=== PATIENT | female | born 1995 | race Two or more races ===

== ENCOUNTER 2018-09-29 15:55 | Emergency (ER) | payer OTHER ==
[~2018-09-29] VITALS: Ht 157.5 cm; Wt 62.6 kg
[2018-09-29] MEDS ORDERED: Acetaminophen 500mg (ES) tab ORAL ONE (16:45)
[2018-09-29 17:24] VITALS: BP 105/62
--- NOTE | 2018-09-29 17:26 | NUR ---
ED Nurse Note:pt. received pain meds and went to MRI
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
--- NOTE | 2018-09-29 19:14 | NUR ---
ED Nurse Note: Received report from Chhaya REYNOLDS. Pt currently at MRI for lower back pain. Awaiting pt's return. Will continue to monitor.
--- NOTE | 2018-09-29 19:23 | NUR ---
ED Nurse Note: Pt returned from MRI; awaiting results.
[2018-09-29] MEDS ORDERED: TYLENOL EXTRA500 MG ORAL (19:53)
[2018-09-29] MEDS ORDERED: LIDODERM700 M1 TOPIC (19:53)
--- NOTE | 2018-09-29 19:57 | NUR ---
ED Nurse Note: Pt cleared by health care Provider for discharge. DC instructions/prescription was given and explained to pt and verbalized understanding of teachings. All medical deviecs such as ID band removed. Pt is AAO x4, ambulatory and left with all personal belongings.
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
== END 2018-09-29 19:56 | disposition home or self-care (01) ==
LOC: EMR 16:39
DX: M54.2 Cervicalgia (principal); M54.42 Lumbago with sciatica, left side; V43.52XA Car driver injured in collision with other type car in traffic accident, initial encounter; Y92.410 Unspecified street and highway as the place of occurrence of the external cause; R53.1 Weakness
CPT/HCPCS: 72141; 72146; 72148; 99284